=== PATIENT | female | born 1985 | race Caucasian/White ===

== ENCOUNTER 2025-08-23 08:31 | Outpatient (CLI) | payer BC, SELFPAY ==
--- NOTE | ~2025-08-23 | XR_ITS ---
XR lumbar spine 2-3V Indication: M54.50 - Low back pain, unspecified Comparison: None Findings: The vertebral heights are intact. No fracture or subluxation. The disc heights are intact. Soft tissues unremarkable Impression: No acute abnormality. Reviewed, dictated and finalized at location P. TO CHIP FRYER Impression: No acute abnormality.
--- NOTE | ~2025-08-23 | XR_ITS ---
EXAMINATION: XR hip RT 2V w AP pelvis, 08/23/2025 8:37 [facility] [employer]EWARD HISTORY: M54.50 - Low back pain, unspecified COMPARISON: No comparisons available. Findings: No acute fracture or malalignment. No significant degenerative changes. Soft tissues unremarkable. Impression: No acute fracture or malalignment. Reviewed, dictated and finalized at location P. HEN STEWARD Impression: No acute fracture or malalignment.
== END 2025-08-23 08:32 | disposition home or self-care (01) ==
LOC: MICIMG 08:33
PROVIDERS: PCP Student in an Organized Health Care Education/Training Program; Visit Provider Student in an Organized Health Care Education/Training Program
DX: M54.50 Low back pain, unspecified (principal); M25.551 Pain in right hip
CPT/HCPCS: 72100; 73502